=== PATIENT | male | born 1950 | race Caucasian/White ===

== ENCOUNTER 2021-05-03 14:03 | Inpatient (IN) | payer MEDICARE, OTHER ==
[~2021-05-03] VITALS: Ht 180.3 cm; Wt 65.8 kg
[2021-05-03 16:05] LABS: HEMOGLOBIN 11.9 gm/dl (14.0-17.5); RED BLOOD COUNT 4.25 M/UL (4.20-5.50); WHITE BLOOD COUNT 11.4 K/UL (4.5-11.0)
[2021-05-04 04:19] LABS: HEMOGLOBIN 10.1 gm/dl (14.0-17.5); WHITE BLOOD COUNT 10.6 K/UL (4.5-11.0)
[2021-05-04 04:27] LABS: RED BLOOD COUNT 3.55 M/UL (4.20-5.50)
[2021-05-04] MEDS ORDERED: FENOFIBRATE160 MG PO (04:32)
[2021-05-04] MEDS ORDERED: PROTONIX 40 MG40 M1 PO (04:33)
[2021-05-04] MEDS ORDERED: LOPRESSOR 25 MG25 MG PO (04:34)
[2021-05-04] MEDS ORDERED: ATORVASTATIN CA40 MG PO (04:35)
[2021-05-04] MEDS ORDERED: NIFEDIPINE ER90 M1 PO (04:35)
[2021-05-04] MEDS ORDERED: POTASSIUM CHLO20 ME1 PO (04:36)
[2021-05-04] MEDS ORDERED: DALIRESP500 MCG PO (04:37)
[2021-05-04] MEDS ORDERED: FLONASE 0.05% N16 GM (04:37)
[2021-05-04] MEDS ORDERED: CALCIUM 600 +1 EAC3 PO (04:37)
[2021-05-04] MEDS ORDERED: CLOPIDOGREL75 MG PO (04:38)
[2021-05-04] MEDS ORDERED: FEROSUL325 MG PO (04:38)
[2021-05-04] MEDS ORDERED: EDARBYCLOR 40-1 EACH PO (04:38)
[2021-05-04] MEDS ORDERED: GLUCOTROL5 MG PO (04:39)
[2021-05-04] MEDS ORDERED: GABAPENTIN300 MG PO (04:42)
[2021-05-04] MEDS ORDERED: NIFEDIPINE ER60 M1 PO (04:43)
[2021-05-04] MEDS ORDERED: MAGNESIUM OXID400 M1 PO (04:44)
[2021-05-04] MEDS ORDERED: VENTOLIN HFA 66.7 GM INH (04:46)
[2021-05-04] MEDS ORDERED: ADULT LOW DOSE81 MG PO (04:47)
[2021-05-05 03:37] LABS: HEMOGLOBIN 8.4 gm/dl (14.0-17.5); RED BLOOD COUNT 2.95 M/UL (4.20-5.50); WHITE BLOOD COUNT 6.4 K/UL (4.5-11.0)
[2021-05-06 03:02] LABS: RED BLOOD COUNT 2.72 M/UL (4.20-5.50); WHITE BLOOD COUNT 5.2 K/UL (4.5-11.0)
[2021-05-06 11:14] LABS: CREATININE, URINE 14.9 mg/dL (Not Estab.)
[2021-05-07] MEDS ORDERED: HYDRALAZINE HCL25 MG PO (14:52)
[2021-05-07] MEDS ORDERED: SODIUM BICARBO650 M1 PO (14:52)
== END 2021-05-07 15:45 | disposition home health service (06) | DRG 682 ==
LOC: ER1 14:03 → PROG CARE 18:32 → CDU 18:32 → PROG CARE 05-04 03:45
PROVIDERS: Internal Medicine; Internal Medicine Nephrology; Physician Assistant; ADMIT Internal Medicine Infectious Disease
DX: N17.0 Acute kidney failure with tubular necrosis (principal); G93.41 Metabolic encephalopathy; E87.2 Acidosis; E87.1 Hypo-osmolality and hyponatremia; E87.6 Hypokalemia; Z20.822 Contact with and (suspected) exposure to COVID-19; K52.9 Noninfective gastroenteritis and colitis, unspecified; I25.10 Atherosclerotic heart disease of native coronary artery without angina pectoris; J44.9 Chronic obstructive pulmonary disease, unspecified; I73.9 Peripheral vascular disease, unspecified; E86.0 Dehydration; R13.10 Dysphagia, unspecified; E11.9 Type 2 diabetes mellitus without complications; E87.5 Hyperkalemia; I12.9 Hypertensive chronic kidney disease with stage 1 through stage 4 chronic kidney disease, or unspecified chronic kidney disease; N18.30 Chronic kidney disease, stage 3 unspecified; Z79.82 Long term (current) use of aspirin; Z79.02 Long term (current) use of antithrombotics/antiplatelets; Z95.1 Presence of aortocoronary bypass graft; Z82.49 Family history of ischemic heart disease and other diseases of the circulatory system; Z90.89 Acquired absence of other organs; Z87.891 Personal history of nicotine dependence
CPT/HCPCS: 36415; 36600; 71045; 80048; 80053; 81001; 82043; 82150; 82533; 82550; 82553; 82570; 82728; 82803; 82962; 83036; 83540; 83550; 83690; 83735; 83874; 84156; 84443; 84484; 85025; 86140; 93005; 94640; 94664; 94760; 96374; 96375; 97116-GP-CQ; 97161; 99285; C9113; J0360; J0610; J1650; J1940; J7030; J7070; Q9967; U0002